=== PATIENT | female | born 1990 | race Caucasian/White ===

== ENCOUNTER 2021-08-09 14:42 | Outpatient (CLI) | payer BC ==
[~2021-08-09] VITALS: Ht 165.1 cm; Wt 99.8 kg
== END 2021-08-09 20:32 | disposition home or self-care (01) ==
LOC: GENOP 14:42
DX: O36.8130 Decreased fetal movements, third trimester, not applicable or unspecified (principal); O99.891 Other specified diseases and conditions complicating pregnancy; O23.43 Unspecified infection of urinary tract in pregnancy, third trimester; R10.30 Lower abdominal pain, unspecified; N39.0 Urinary tract infection, site not specified; U07.1 COVID-19; R51.9 Headache, unspecified; O36.8330 Maternal care for abnormalities of the fetal heart rate or rhythm, third trimester, not applicable or unspecified; M54.9 Dorsalgia, unspecified; Z3A.29 29 weeks gestation of pregnancy
CPT/HCPCS: 96360; 96367; 96374; J1200; J2405; J7030

== ENCOUNTER 2021-08-15 13:16 | Outpatient (CLI) | payer BC | END 2021-08-15 20:31 | LOC: GENOP 13:16 | DX: O36.8130 Decreased fetal movements, third trimester, not applicable or unspecified (principal); U07.1 COVID-19; O98.513 Other viral diseases complicating pregnancy, third trimester; O23.43 Unspecified infection of urinary tract in pregnancy, third trimester; Z3A.30 30 weeks gestation of pregnancy | CPT/HCPCS: 71046; 81001; G0463 ==

== ENCOUNTER → 2021-08-18 | Outpatient (CLI) | payer BC ==
[~2021-08-18] VITALS: Ht 165.1 cm; Wt 97.1 kg
== END ==
LOC: EROP 11:07
DX: U07.1 COVID-19 (principal); Z23 Encounter for immunization
CPT/HCPCS: M0247; Q0247

== ENCOUNTER 2021-10-13 05:33 | Inpatient (IN) | payer BC ==
[~2021-10-13] VITALS: Ht 165.1 cm; Wt 102.5 kg
[2021-10-13] MEDS ORDERED: ACEBUTOLOL HCL200 MG PO (06:35)
[2021-10-13] MEDS ORDERED: OMEPRAZOLE20 MG PO (06:35)
[2021-10-13] MEDS ORDERED: ADULT LOW DOSE81 MG PO (06:36)
[2021-10-13] MEDS ORDERED: PRENATABS FA T1 EACH PO (06:36)
== END 2021-10-14 12:49 | disposition short-term general hospital (02) | DRG 788 ==
LOC: OB 05:33
PROVIDERS: ADMIT Obstetrics & Gynecology
PROC: 3E033VJ Introduction of Other Hormone into Peripheral Vein, Percutaneous Approach (ICD-10-PCS; 2021-10-13)
PROC: 10D00Z1 Extraction of Products of Conception, Low, Open Approach (ICD-10-PCS; principal; 2021-10-13 07:30)
DX: O36.63X0 Maternal care for excessive fetal growth, third trimester, not applicable or unspecified (principal); Z20.822 Contact with and (suspected) exposure to COVID-19; O99.02 Anemia complicating childbirth; D64.9 Anemia, unspecified; O62.2 Other uterine inertia; Z37.0 Single live birth; Z3A.39 39 weeks gestation of pregnancy; Z90.89 Acquired absence of other organs; Z88.0 Allergy status to penicillin; Z82.49 Family history of ischemic heart disease and other diseases of the circulatory system; Z83.3 Family history of diabetes mellitus; Z80.3 Family history of malignant neoplasm of breast; Z80.1 Family history of malignant neoplasm of trachea, bronchus and lung
CPT/HCPCS: 36415; 82800; 85014; 85018; 93005; C9113; J1170; J1580; J2210; J2274; J2370; J2405; J2550; J2590; J3010; J7120